=== PATIENT | female | born 1995 | race Caucasian/White ===

== ENCOUNTER 2020-12-16 14:41 | Emergency (ER) | payer OTHER ==
[~2020-12-16] VITALS: Ht 172.7 cm; Wt 137.5 kg
[2020-12-16] MEDS ORDERED: ATOM40CA16 PO (14:54)
[2020-12-16] MEDS ORDERED: RISP-8 PO (14:54)
[2020-12-16] MEDS ORDERED: BUPR150T12 PO (14:54)
[2020-12-16 16:16] LABS: BASO # 0.1 10^3/uL (0.0-0.2); BASO % 0.5 % (0.0-1.0); EOS # 0.2 10^3/uL (0.0-0.5); EOS % 1.6 % (0.0-3.0); HEMATOCRIT 35.6 % (36.0-47.0); HEMOGLOBIN 11.6 g/dl (12.0-15.5); LYMPH # 1.6 10^3/uL (1.5-5.0); LYMPH % 14.7 % (24.0-44.0); MEAN CORPUSCULAR HEMOGLOBIN 28.4 pg (27.0-33.0); MEAN CORPUSCULAR HGB CONC 32.6 g/dl (32.0-36.5); MONO # 0.6 10^3/uL (0.0-0.8); MONO % 5.6 % (2.0-8.0); NEUTROPHILS # 8.5 10^3/uL (1.5-8.5); NEUTROPHILS % 77.2 % (36.0-66.0); PLATELET COUNT, AUTOMATED 281 10^3/uL (150-450); RED BLOOD COUNT 4.09 10^6/uL (4.00-5.40); WHITE BLOOD COUNT 10.9 10^3/uL (4.0-10.0)
[2020-12-16 16:39] LABS: ALBUMIN 2.5 GM/DL (3.2-5.2); ALT/SGPT 22 U/L (12-78); BILIRUBIN,DIRECT < 0.1 MG/DL (0.0-0.2); BILIRUBIN,TOTAL 0.2 MG/DL (0.2-1.0); LIPASE 52 U/L (73-393); TOTAL PROTEIN 5.7 GM/DL (6.4-8.2)
[2020-12-16 17:18] LABS: BLOOD UREA NITROGEN 6 MG/DL (7-18); CALCIUM LEVEL 8.5 MG/DL (8.5-10.1); CARBON DIOXIDE LEVEL 28 MEQ/L (21-32); CHLORIDE LEVEL 107 MEQ/L (98-107); CREATININE FOR GFR 0.46 MG/DL (0.55-1.30); GLOMERULAR FILTRATION RATE > 60.0 (>60); GLUCOSE, FASTING 94 MG/DL (70-100); HCG, SERUM QUANTITATIVE 23605 MIU/ML; POTASSIUM SERUM 3.6 MEQ/L (3.5-5.1); SODIUM LEVEL 141 MEQ/L (136-145)
--- NOTE | 2020-12-16 17:31 | REP ---
INDICATION: abdominal pain. Question of placental abruptio. COMPARISON: All prior studies are reportedly performed at 4 drum commonly organ are not available after hours over the weekend. TECHNIQUE: Multiple ultrasonographic images of the gravid uterus including color Doppler ultrasound. Limited study to evaluate for placental abruptio. FINDINGS: LMP 08/20/2020. Gestational age by LMP is 16 weeks 6 days with an VANESSA of 05/27/2021. There is a single intrauterine gestation in a transverse lie with the head to the maternal right. heart rate is 149 beats per minute. The placenta is fundal with grade 0 maturity. There is no placenta previa. There is no abruptio. The umbilical cord inserts centrally on the placenta. Subjectively the amniotic fluid volume is normal. The cervix measures 3.7 cm length. During the examination a right ovarian cyst is identified measuring 4.6 x 2.6 x 2.9 cm, likely a corpus luteum IMPRESSION: There is no placental abruptio. There is no placenta previa. There is a 4.6 x 2.6 x 2.9 cm right ovarian cyst, likely a corpus luteum. <Electronically signed by German Reid > 12/16/20 [id number]
[2020-12-16 18:07] LABS: GC DNA AMPLIFICATION NEGATIVE (NEGATIVE)
[2020-12-16] MEDS ORDERED: RHOGAM 300 MCG (1500 IU) INJ (J2790) IM ONE (18:40)
[2020-12-16 20:03] VITALS: BP 134/64
== END 2020-12-16 20:07 | disposition home or self-care (01) ==
LOC: M ED 14:41
DX: O20.0 Threatened abortion (principal); O34.82 Maternal care for other abnormalities of pelvic organs, second trimester; Z3A.16 16 weeks gestation of pregnancy
CPT/HCPCS: 36415; 76815; 80047; 80048; 80076; 81001; 83690; 84702; 85025; 86850; 86900; 86901; 87086; 87210; 87491; 87591; 96372; 99284; J2790

== ENCOUNTER 2021-05-10 06:03 | Inpatient (IN) | payer OTHER ==
[2021-05-10] VITALS (7 sets, daily range): BP systolic 129–148; BP diastolic 68–90
[~2021-05-10] VITALS: Ht 172.7 cm; Wt 134.8 kg
[~2021-05-10 06:03] MED LIST: ATOM40CA16 PO; BUPR150T12 PO; RISP-8 PO
[2021-05-10] MEDS ORDERED: LACTATED RINGER'S 1000 ML IV STA (06:18)
[2021-05-10] MEDS ORDERED: ceFAZolin SOD 3 GM IV Place Holder IV ONE (06:20)
[2021-05-10] MEDS ORDERED: TRANEXAMIC ACID INJection 1,000 MG in NS 100 ML IV PRN (06:20)
[2021-05-10] MEDS ORDERED: METHYLERGONOVINE MALEATE 0.2 MG/ML VIAL (J2210) IM PRN (06:20)
[2021-05-10] MEDS ORDERED: CARBOPROST TROMETHAMINE 250 MCG/ML AMP IM PRN (06:20)
[2021-05-10] MEDS ORDERED: LR 1,000 ML IV SCH ×3 (06:20→08:35)
[2021-05-10] MEDS ORDERED: OXYTOCIN INJ 10 UNITS/ML VIAL (J2590) As Ordered ONE (06:45)
[2021-05-10] MEDS ORDERED: ONDANSETRON 4MG/2ML VIAL As Ordered ONE (06:45)
[2021-05-10] MEDS ORDERED: dexameTHASONE 4 MG/ML 1ML VIAL (J1100 PER 1MG) As Ordered ONE (06:45)
[2021-05-10] MEDS ORDERED: MORPHINE PRES-FREE INJ 10 MG/10 ML VIAL (J2274) As Ordered ONE (06:45)
[2021-05-10 06:48] LABS: HEMATOCRIT 39.4 % (36.0-47.0); HEMOGLOBIN 12.8 g/dl (12.0-15.5); MEAN CORPUSCULAR HEMOGLOBIN 28.3 pg (27.0-33.0); MEAN CORPUSCULAR HGB CONC 32.5 g/dl (32.0-36.5); PLATELET COUNT, AUTOMATED 325 10^3/uL (150-450); RED BLOOD COUNT 4.53 10^6/uL (4.00-5.40)
--- NOTE | 2021-05-10 06:53 | HPEPDOC ---
Obstetrical History & Physical General Date of Admission May 10, 2021 at 06:12 History of Present Illness 25-year-old G1, P0 at 38+4 weeks gestation. Presents with frequent, painful ekuk rine contractions and loss of fluid/meconium over the past 2 hours. Denies any vaginal bleeding. Reports regular movement. ROS: no GALICIA, cp, sob, fever/chills/nausea/vomiting. course: 1. anomalies: Myelomeningocele (L2-L3), Arnold-Chiari malformation, no evidence of ventriculomegaly, no evidence of polyhydramnios, left clubfoot. Cell free DNA testing was normal/low risk. Elevated MSAFP, 2.99MoM. 2. Maternal obesity 3. Persistent breech presentation 4. Maternal psychiatric condition; ADHD/depression/anxiety PMH: ADHD/depression/anxiety, obesity SH: Tonsillectomy, tympanostomy Meds: vitamin, Risperdal, Wellbutrin, Prozac, Strattera All: NKDA TRAINING ADMINISTRATOR: No STI or dysplasia OB: G1 Sochx: No tobacco, alcohol or drug use FamHx: Noncontributory labs: Blood type B-, antibody screen negative, HepBsAg neg, HIV neg, rubella immune, Hep C antibody negative, RPR nonreactive, CT/GC neg, urine culture negative, 1 hour glucose challenge test 107, elevated MSAFP 2.99 MoM imaging: See anomalies above, no placental abnormalities Past Medical History Allergies Coded Allergies: No Known Allergies (Unverified , 12/16/20) Medications Scheduled Atomoxetine HCl (Strattera) 40 Mg Capsule, 2 CAP PO QAM Bupropion Hcl (Bupropion Xl) 150 Mg Tab.er.24h, 2 TAB PO DAILY Risperidone (Risperidone) 1 Mg Tablet, 1 TAB PO QPM Physical Examination Physical Examination GENERAL: Alert and oriented times three. ABDOMEN: Gravid and non-tender to touch. HEART RATE: Regular rate and rhythm. LUNGS: Clear to auscultation (CTA). EXTREMITIES: No edema. No clonus. SVE: Grossly ruptured with meconium, 1-2cm/75%/-3 US: Breech EFM: Cat I Poneto: ctxs every 2-3min Laboratory Data 24H LABS Laboratory Tests 2 05/10/21 06:23: Assessment/Plan Assessment 25-year-old G1, P0 at 38+4 weeks with spontaneous rupture membranes/early active labor and breech presentation. anomalies known: Mild myelo meningocele, Arnold-Chiari malformation, left clubfoot. Maternal status currently reassuring Plan Admit and orient. Counseled and consented for primary low transverse section Labs and intravenous (IV) per unit protocol. Preparations being made for the OR for primary low transverse section due to breech presentation Anesthesia and pediatrics/NICU notified PANFILO AVILES DO May 10, 2021 06:53
[2021-05-10] MEDS ORDERED: ceFAZolin SOD 1 GM in D5W MINI-BAG PLUS 50 ML IV ONE (07:00)
[2021-05-10] MEDS ORDERED: ceFAZolin SOD 2 GM in IV 1 EA IV ONE (07:00)
[2021-05-10] MEDS ORDERED: BICITRA 30ML SOLN UDC PO ONE (07:00)
[2021-05-10] MEDS ORDERED: AZITHROMYCIN INJ 500 MG, VIAL MATE ADAPTER 1 EACH in NS 250 ML IV ONE (07:00)
[2021-05-10] MEDS ORDERED: METOCLOPRAMIDE INJ 10MG/2ML VIAL (J2765 PER 1) IV PRN ×2 (07:08→08:35)
[2021-05-10] MEDS ORDERED: NALBUPHINE HCL 10 MG/ML AMP (J2300) IV PRN (07:08)
[2021-05-10] MEDS ORDERED: ONDANSETRON 4MG/2ML VIAL IV PRN ×3 (07:08→08:35)
[2021-05-10] MEDS ORDERED: NALOXONE INJ 0.4MG/1ML VIAL (J2310 PER 1MG) IV PRN ×2 (07:08)
[2021-05-10] MEDS ORDERED: PHENYLephrine 500MCG 5ML (100MCG/ML) SYRINGE As Ordered ONE ×2 (07:17→07:43)
[2021-05-10 07:42] LABS: CORD GAS ABE V -1.7; CORD GAS HCO3 V 25.9 MEQ/L; CORD GAS PCO2 V 57.3 mmHg; CORD GAS PH V 7.273 UNITS; CORD GAS PO2 V 22.5 mmHg; CORD GAS SBC V 22.1 MEQ/L; CORD GAS TCO2 V 27.7 MEQ/L
[2021-05-10 07:43] LABS: CORD GAS ABE A -4.4; CORD GAS HCO3 A 24.1 MEQ/L; CORD GAS O2 SAT A 44.1 %; CORD GAS PCO2 A 61.1 mmHg; CORD GAS PH A 7.214 UNITS; CORD GAS PO2 A 21.1 mmHg; CORD GAS SBC A 19.8 MEQ/L
[2021-05-10] MEDS ORDERED: OXYTOCIN DRIP 30 UNITS in IV 1 EA IV SCH (08:25)
[2021-05-10] MEDS ORDERED: MEASLES,MUMPS,RUBELLA VACCINE INJ (MMR-II) (90707) SC SCH (08:25)
[2021-05-10] MEDS ORDERED: PERCOCET 5MG/325MG TAB PO PRN ×2 (08:25)
[2021-05-10] MEDS ORDERED: RHOGAM 300 MCG (1500 IU) INJ (J2790) IM SCH (08:25)
[2021-05-10] MEDS ORDERED: SIMETHICONE 80MG CHEW TAB PO PRN (08:25)
[2021-05-10] MEDS ORDERED: fentaNYL 100 MCG/2 ML INJECTION (J3010) IV PRN (08:35)
[2021-05-10] MEDS ORDERED: oxyCODONE 5MG TAB PO PRN (08:35)
--- NOTE | 2021-05-10 08:40 | ROOPDOC ---
[facility] Report Of Operation Report of Operation DATE OF PROCEDURE: 05/10/2021 PREPROCEDURE DIAGNOSES: 38+4 weeks gestation, breech presentation, spontaneous rupture of membranes/early active labor, anomalies: Myelo men ingocele/clubfoot/Arnold-Chiari malformation, maternal obesity POSTPROCEDURE DIAGNOSES: Same PROCEDURE: Primary low transverse section SURGEON: Adolfo Oneal DO FACOG NEGATIVE RETOUCHER: Marc Milian MD FACOG (Essential role in retraction, extraction, and closure of all tissue layers) ANESTHESIA: Spinal ESTIMATED BLOOD LOSS: 500 mL. IV FLUIDS: 1600 mL LR URINE OUTPUT: 25 mL COMPLICATIONS: None. PREOPERATIVE ANTIBIOTICS: Ancef 3g IV x 1, azithromycin 500mg IV. COMPLICATIONS: none DATA: Apgars 8 and 9. Birthweight 3346 g, 7 lbs 6 oz. SPECIMENS: none PRIMARY INDICATION FOR : Breech DESCRIPTION OF PROCEDURE: The patient was counseled on the risks, benefits, indications and alternatives of the procedure. Informed consent was obtained. She was taken to the operating room with IV running and placed on the operating table in the dorsal supine position with a leftward tilt. Regional anesthesia was found to be adequate. Sequential compression devices were placed on the lower extremities. A Araya catheter was placed under sterile conditions. She was prepared and draped in normal sterile fashion with a Traxi retractor. A time out was performed per protocol. Regional anesthesia was again found to be adequate. A Pfannenstiel skin incision was made with the 10 blade. The 10 blade was used to dissect down to the level of the rectus sheath fascia. The rectus sheath fascia was incised midline and this was extended bilaterally with Hager scissors , and manual stretch. The rectus muscle bellies were dissected off the rectus sheath fascia superiorly and inferiorly using both sharp and blunt dissection. The midline was identified. The peritoneum was identified and entered digitally. The peritoneal opening was extended with manual stretch. The Mobius retractor was placed. The vesicouterine peritoneum was dissected with Metzenbaum scissors to create the bladder flap. A low transverse uterine incision was made with the 10 blade. This was extended with manual stretch. The amniotic sac was punctured, and clear fluid was noted. The baby delivered through the hysterotomy without difficulty using typical breech maneuvers. The cord was doubly clamped and cut, and the baby was handed off to awaiting care. data shown above. Cord blood obtained. Cord gases were obtained. The placenta was removed manually. The intrauterine cavity was cleared of all clot and debris. The hysterotomy was closed with 0 Vicryl in running locked fashion. This was reinforced with a second imbricating layer using 0 Monocryl in running fashion. Excellent hemostasis of the hysterotomy was noted. The pelvis was irrigated and the fluid suctioned. The Mobius retractor was removed. The peritoneum was closed with 3-0 Vicryl running fashion. The rectus muscle b ellies were reapproximated with interrupted stitches using 3-0 Vicryl. The rectus muscles bellies were hemostatic. The rectus sheath fascia was closed with 0 Vicryl running fashion. The subcutaneous layer was irrigated and the fluid suctioned. Small bleeding vessels were cauterized with Bovie. Excellent hemostasis was noted. The subcutaneous layer was reapproximated with 3-0 Vicryl running fashion. Skin was closed with 3-0 Monocryl in subcuticular fashion. An Optifoam bandage was placed over the closed incision. Sponge, needle and instrument counts were correct per protocol throughout the procedure. The patient tolerated the entire procedure very well. She was transferred to the PACU in stable condition. DO ANGELITA Richardson JONATHAN R. DO May 10, 2021 08:40
[2021-05-10] MEDS ORDERED: OXYTOCIN 30 UNITS IN 0.9% NaCl 500ML IV BAG (J2590) As Ordered ONE (08:41)
[2021-05-10] MEDS ORDERED: PERCOCET PO (08:42)
[2021-05-10] MEDS ORDERED: COLA100C5 PO (08:42)
[2021-05-10] MEDS ORDERED: IBUP80TA PO (08:42)
[2021-05-10] MEDS: PRENATAL VITAMINS CHEWABLE TABLET PO SCH (09:00)
[2021-05-10] MEDS: DOCUSATE SODIUM 100MG CAPSULE PO SCH ×2 (09:00→20:03)
[2021-05-10] MEDS: KETOROLAC 30 MG/ML 1ML VIAL IV SCH ×3 (10:30→20:06)
[2021-05-10] MEDS: diphenhydrAMINE 50MG/ML VIAL (J1200) IV PRN ×2 (11:36→21:30)
[2021-05-10 11:37] LABS: HEMATOCRIT 36.9 % (36.0-47.0); HEMOGLOBIN 12.1 g/dl (12.0-15.5); MEAN CORPUSCULAR HEMOGLOBIN 28.7 pg (27.0-33.0); MEAN CORPUSCULAR HGB CONC 32.8 g/dl (32.0-36.5); MEAN CORPUSCULAR VOLUME 87.6 fl (80.0-96.0); PLATELET COUNT, AUTOMATED 332 10^3/uL (150-450); RED BLOOD COUNT 4.21 10^6/uL (4.00-5.40); WHITE BLOOD COUNT 15.5 10^3/uL (4.0-10.0)
[2021-05-10] MEDS ORDERED: ENOXAPARIN 30MG/0.3ML SYRINGE (J1650 PER 10MG) SC SCH (13:00)
[2021-05-11] MEDS: ENOXAPARIN 30MG/0.3ML SYRINGE (J1650 PER 10MG) SC SCH ×2 (00:15→12:19)
[2021-05-11 02:00] VITALS: BP 146/71
[2021-05-11] MEDS: KETOROLAC 30 MG/ML 1ML VIAL IV SCH (02:18)
[2021-05-11 05:48] VITALS: BP 138/64
[2021-05-11 07:15] LABS: HEMATOCRIT 33.3 % (36.0-47.0); HEMOGLOBIN 10.7 g/dl (12.0-15.5); MEAN CORPUSCULAR HEMOGLOBIN 28.6 pg (27.0-33.0); MEAN CORPUSCULAR HGB CONC 32.1 g/dl (32.0-36.5); PLATELET COUNT, AUTOMATED 275 10^3/uL (150-450); RED BLOOD COUNT 3.74 10^6/uL (4.00-5.40); WHITE BLOOD COUNT 10.1 10^3/uL (4.0-10.0)
[2021-05-11 09:00] VITALS: BP 138/64
[2021-05-11 10:00] VITALS: BP 139/68
[2021-05-11] MEDS: PRENATAL VITAMINS CHEWABLE TABLET PO SCH (10:37)
[2021-05-11] MEDS: DOCUSATE SODIUM 100MG CAPSULE PO SCH (10:37)
[2021-05-11] MEDS ORDERED: IBUPROFEN 800 MG TAB PO SCH (11:00)
[2021-05-11] MEDS ORDERED: IBUP80TA PO (12:16)
[2021-05-11] MEDS ORDERED: PERCOCET PO (12:16)
[2021-05-11] MEDS ORDERED: COLA100C5 PO (12:16)
--- NOTE | 2021-05-11 13:08 | DSES ---
DISCHARGE SUMMARY DATE OF ADMISSION: 05/10/2021 DATE OF DISCHARGE: 05/11/2021 BRIEF HISTORY: Manuela is a 25-year-old 1, bnvc-[id number] now who was admitted with rupture of membranes, meconium-stained fluid. DISCHARGE DIAGNOSIS: Primary section, postoperative day one, stable for discharge. SURGEON: Adolfo Oneal DO ELECTRIC MOTOR TESTER: Kaela Milian MD HISTORY/HOSPITAL COURSE: Manuela is a 25-year-old 1, iigu-1-7-0-1 now who was admitted to labor and delivery with spontaneous rupture of membranes, breech presentation, early active labor, known anomaly of myelomeningocele, club foot, Arnold Chiari malformation, obesity, psychiatric diagnoses. Her surgery was uncomplicated. She had a 500 mL estimated blood loss. She delivered a live female that weighed 7 pounds 6 ounces, 3346 gm. Apgars were 8 and 9. Her was transferred to [place] due to the severity of anomalies. She is requesting discharge home today. Her postoperative course has been uncomplicated. She has been out of bed for self care and to shower. She is tolerating a regular diet and p.o. fluids, voiding without difficulty, and passing flatus. Her pain has been well managed with p.o. pain medications. She is requesting discharge home due to the condition and her ability to retrieve a room at the [facility] only today. Otherwise it will be another four days before she can have access. OBJECTIVE: Objectively she is stable for discharge. Her vital signs are temperature 97.6, respirations 18, pulse 74, blood pressure is 139/68. Her postoperative CBC with a hemoglobin of 10.7, hematocrit 33.3, and platelets are 275. She is alert and oriented times three. She is ambulating without difficulty. Breasts are soft and nontender. Nipples are intact. Abdomen: Fundus fern at one finger breadth below the umbilicus. Her incision has the Opti-Foam dressing in place. There is no drainage noted. Perineum is intact. Lochia rubra scant. Bilateral lower extremities with scant pitting edema. PLAN: Discharge the patient so she may obtain her room at the [facility]. E-prescriptions have been prescribed by myself for docusate sodium, ibuprofen, and Percocet for pain. She is to be seen for a two week incision check and an eight week visit. I did let her know that she can be seen at [facility] for these if they are more convenient to her since she does obtain care in [facility]. I did review discharge instructions that include breast care, incision care, jeanie care, pelvic rest, activity and lifting restrictions, danger signs to report and access to care. The patient has had her questions answered and requests discharge.
== END 2021-05-11 13:00 | disposition home or self-care (01) | DRG 540 ==
LOC: M LDO 06:03 → M LDI 06:12 → M OBS 09:48
PROVIDERS: ADMIT Obstetrics & Gynecology; ATTEND Obstetrics & Gynecology
PROC: 10D00Z1 Extraction of Products of Conception, Low, Open Approach (ICD-10-PCS; principal; 2021-05-10 07:00)
DX: O32.1XX0 Maternal care for breech presentation, not applicable or unspecified (principal); E66.9 Obesity, unspecified; O35.0XX0 Maternal care for (suspected) central nervous system malformation in fetus, not applicable or unspecified; O99.214 Obesity complicating childbirth; Z37.0 Single live birth; Z3A.38 38 weeks gestation of pregnancy; O77.0 Labor and delivery complicated by meconium in amniotic fluid; F41.9 Anxiety disorder, unspecified; F32.A Depression, unspecified; O99.344 Other mental disorders complicating childbirth

== ENCOUNTER → 2024-12-08 | Outpatient (REF) ==
[~2024-12-08] MED LIST changes: +COLA100C5 PO; +IBUP80TA PO; +PERCOCET PO; +RISP-105 PO; -RISP-8 PO
== END ==
LOC: M PLAIMG 13:55
PROVIDERS: ATTEND Internal Medicine
DX: E52 Niacin deficiency [pellagra] (principal)